=== PATIENT | female | born 1990 | race American Indian/Alaskan Native ===

== ENCOUNTER 2017-04-24 15:54 | Emergency (ER) | payer OTHER ==
[2017-04-24 16:16] VITALS: BP 142/84
--- NOTE | 2017-04-24 16:46 | Emergency Department Report ---
Entered by LOLA HERNANDEZ, acting as scribe for KARLI MONTAGUE PA. Chief Complaint: Upper Respiratory Infection Stated Complaint: CHEST PAIN/COUGHING BLOOD Time Seen by Provider: 04/24/17 16:11 - HPI History of Present Illness: Patient c/o an upper respiratory infection with associated sharp, 5/10 chest pain with coughing for 4 days. Notes taking OTC cold medication with some relief. Reports nausea/fever/cough with clear-yellow sputum/congestion/rhinorrhea/sore throat. Patient states she coughed up thick sputum with small amounts of blood this morning. She denies fevers/chills/vomiting/abdominal pain/shortness of breath/dizziness - ROS Review of Systems: All systems are negative unless stated in the HPI above. - Exam Vital Signs: Vital Signs 04/24/17 16:01 Temperature 98.8 F Pulse Rate 114 H Respiratory 20 Rate Blood Pressure 142/84 O2 Sat by Pulse 98 Oximetry Physical Exam: GENERAL: Patient is alert and oriented x 3. No apparent distress, normal gait, atraumatic. LUNGS: Symmetrical with respiration. No wheezing, rales or crackles, CTAB. HEART: Tachycardic. Regular rhythm with normal S1/S2 present. No murmurs, rubs , or gallops. MSE screening note: Focused history and physical exam performed. Due to findings the following was ordered: see below ED Medical Decision Making - EKG Data EKG shows normal: sinus rhythm Rate: tachycardia - Medical Decision Making Patient screened by provider in triage area. Labs and chest X-ray will be ordered and sent in for patient. Patient sent to be seen by another provider in fast track. ED Disposition for MSE Condition: Stable This documentation as recorded by the scribe,LOLA HERNANDEZ,accurately reflects the service I personally performed and the decisions made by EDDI rogers OYINLOLA A, PA.
[2017-04-24 17:06] LABS: Bilirubin,Urine NEG (Negative); Blood,Urine NEG (Negative); Ketones,Urine NEG (Negative); Leukocyte Esterase,Urine NEG (Negative); Mucus,Urine FEW /HPF; Nitrite,Urine NEG (Negative); Protein,Urine <15 mg/dL mg/dL (Negative)
[2017-04-24] MEDS ORDERED: NACL ONE (19:32)
--- NOTE | 2017-04-24 19:47 | Emergency Department Report ---
- General Chief Complaint: Upper Respiratory Infection Stated Complaint: CHEST PAIN/COUGHING BLOOD Time Seen by Provider: 04/24/17 19:09 Source: patient Mode of arrival: Ambulatory Limitations: No Limitations - History of Present Illness Initial Comments: This is a 27-year-old female nontoxic or ill in appearance that presents to ED c /o productive cough with yellow colored sputum, congestion, rhinorrhea, sore throat, chest pain when coughing, x4 days. Patient stated this morning she seen a small amount of blood in sputum. Patient denies any recent travels or long car rides. Patient denies SOB, calf pain, dyspnea, headache, fever, chills , blurry vision, stiff neck, n/v, numbness, or tingling. Patient describes chest pain as intermittent during coughing. Patient stated has been taking OTC flu medicine with no relief. Patient denies any allergies. Patient denies taking control. Patient denies any PMH. Last menstrual period 03/14/2017. MD Complaint: cough, sore throat, rhinorrhea, nasal congestion -: Gradual, days(s) Severity: mild Severity scale (0 -10): 5 Quality: aching Consistency: intermittent Improves With: nothing Worsens With: nothing Associated Symptoms: rhinorrhea, nasal congestion, sore throat, cough. denies: fever, chills, myalgias, diaphoresis, headache, stiff neck, chest pain, shortness of breath, abdominal pain, nausea, vomiting, diarrhea, dysuria, rash, confusion, right sweats, weight loss, epistaxis, hoarseness, ear pain Treatments Prior to Arrival: other (OTC "flu medicine") - Related Data Previous Rx's Medication Instructions Recorded Last Taken Type Azithromycin [Zithromax Z-ARGENIS] 250 mg PO DAILY #6 tablet 04/24/17 Unknown Rx Allergies Allergy/AdvReac Type Severity Reaction Status Date / Time No Known Allergies Allergy Unverified 04/24/17 16:15 ED Review of Systems ROS: Stated complaint: CHEST PAIN/COUGHING BLOOD Other details as noted in HPI Constitutional: denies: chills, fever Eyes: denies: eye pain, eye discharge, vision change ENT: denies: ear pain, throat pain Respiratory: denies: cough, shortness of breath, wheezing Cardiovascular: denies: chest pain, palpitations Endocrine: no symptoms reported Gastrointestinal: denies: abdominal pain, nausea, diarrhea Genitourinary: denies: urgency, dysuria, discharge Musculoskeletal: denies: back pain, joint swelling, arthralgia Skin: denies: rash, lesions Neurological: denies: headache, weakness, paresthesias Psychiatric: denies: anxiety, depression Hematological/Lymphatic: denies: easy bleeding, easy bruising ED Past Medical Hx - Past Medical History Previous Medical History?: No - Surgical History Past Surgical History?: No - Social History Smoking Status: Never Smoker Substance Use Type: None - Medications Home Medications: Home Medications Medication Instructions Recorded Confirmed Last Taken Type Azithromycin [Zithromax Z-ARGENIS] 250 mg PO DAILY #6 tablet 04/24/17 Unknown Rx ED Physical Exam - General Limitations: No Limitations General appearance: alert, in no apparent distress - Head Head exam: Present: atraumatic, normocephalic, normal inspection - Eye Eye exam: Present: normal appearance, PERRL, EOMI. Absent: scleral icterus, conjunctival injection, nystagmus, periorbital swelling, periorbital tenderness Pupils: Present: normal accommodation - ENT ENT exam: Present: normal exam, normal orophraynx, mucous membranes moist, TM's normal bilaterally, normal external ear exam - Neck Neck exam: Present: normal inspection, full ROM. Absent: tenderness, meningismus, lymphadenopathy, thyromegaly - Respiratory Respiratory exam: Present: normal lung sounds bilaterally. Absent: respiratory distress, wheezes, rales, rhonchi, stridor, chest wall tenderness, accessory muscle use, decreased breath sounds, prolonged expiratory - Cardiovascular Cardiovascular Exam: Present: normal rhythm, tachycardia, normal heart sounds. Absent: bradycardia, irregular rhythm, systolic murmur, diastolic murmur, rubs, gallop - GI/Abdominal GI/Abdominal exam: Present: soft, normal bowel sounds. Absent: distended, tenderness, guarding, rebound, rigid, diminished bowel sounds - Rectal Rectal exam: Present: deferred - Extremities Exam Extremities exam: Present: normal inspection, full ROM, normal capillary refill. Absent: tenderness, pedal edema, joint swelling, calf tenderness, other (Holmans test) - Back Exam Back exam: Present: normal inspection, full ROM. Absent: tenderness, CVA tenderness (R), CVA tenderness (L), muscle spasm, paraspinal tenderness, vertebral tenderness, rash noted - Neurological Exam Neurological exam: Present: alert, oriented X3, CN II-XII intact, normal gait, reflexes normal - Psychiatric Psychiatric exam: Present: normal affect, normal mood - Skin Skin exam: Present: warm, dry, intact, normal color. Absent: rash ED Course Vital Signs 04/24/17 16:01 Temperature 98.8 F Pulse Rate 114 H Respiratory 20 Rate Blood Pressure 142/84 O2 Sat by Pulse 98 Oximetry - Reevaluation(s) Reevaluation #1: 04/24/17 19:51 Patient is able to speak in full sentences with no signs of distress noted. ED Medical Decision Making - Lab Data Result diagrams: 04/24/17 19:37 04/24/17 19:37 - Medical Decision Making Ed course: This is a 27-year-old female that presents with upper respiratory infection Patient was examined by myself. CTA has been obtained with negative findings. Dictated by Dr. Lloyd. Impression no CT evidence of acute coronary embolism. D-dimer less than 135. Negative Tenderness. Due to patient having recent production off, congestion, rhinorrhea, and sore throat patient was treated with Z-Argenis for upper respiratory infection. Patient was instructed to follow-up with her primary care doctor in 24 hours or symptoms such as shortness of breath, chest pain, fever, chills, nausea or vomiting return to emergency room as was possible. at time time of discharge, the patient does not seem toxic or ill in appearance. No acute signs of distress noted. Patient agrees to discharge treatment plan of care. No further questions noted by the patient. Critical care attestation.: If time is entered above; I have spent that time in minutes in the direct care of this critically ill patient, excluding procedure time. ED Disposition Clinical Impression: Upper respiratory infection Qualifiers: URI type: unspecified URI Qualified Code(s): J06.9 - Acute upper respiratory infection, unspecified Disposition: - TO HOME OR SELFCARE Is pt being admited?: No Does the pt Need Aspirin: No Condition: Stable Instructions: Upper Respiratory Infection (ED), Azithromycin (By mouth) Additional Instructions: follow-up with your primary care doctor in 24 hours or symptoms such as shortness of breath, chest pain, fever, chills, nausea or vomiting return to emergency room as was possible. Take full course of antibiotics as prescribed. Prescriptions: Azithromycin [Zithromax Z-ARGENIS] 250 mg PO DAILY #6 tablet Referrals: [facility] [Outside] - 3-5 Days [facility] [Outside] - 3-5 Days PRIMARY CAREMD [Primary Care Provider] - 24 Hours NEFTALI GUERIN JR, MD [Staff Physician] - 24 Hours Forms: Work/School Release Form(ED)
[2017-04-24 19:50] LABS: Basophils % (Auto) 0.7 % (0.0-1.8); Eosinophils % (Auto) 4.9 % (0.0-4.3); Hematocrit 39.3 % (30.3-42.9); Hemoglobin 12.6 gm/dl (10.1-14.3); Mean Corpuscular HGB Conc 32 % (30-34); Mean Corpuscular Volume 80 fl (79-97); Platelet Count 335 K/mm3 (140-440); Red Blood Count 4.93 M/mm3 (3.65-5.03); Red Cell Distribution Width 15.2 % (13.2-15.2); White Blood Count 6.8 K/mm3 (4.5-11.0)
[2017-04-24 19:57] LABS: Mean Corpuscular Hemoglobin 26 pg (28-32)
[2017-04-24 20:14] LABS: Creatine Kinase MB 1.1 ng/mL (0.0-4.0)
[2017-04-24 20:15] LABS: Anion Gap 16 mmol/L; BUN/Creatinine Ratio 16.66; Blood Urea Nitrogen 10 mg/dL (7-17); Calcium 9.1 mg/dL (8.4-10.2); Carbon Dioxide 27 mmol/L (22-30); Chloride 97.2 mmol/L (98-107); Creatine Kinase 102 units/L (30-135); Glucose 84 mg/dL (65-100); Sodium 136 mmol/L (137-145)
--- NOTE | 2017-04-24 21:16 | Cat Scan Report ---
FINAL REPORT EXAM: CT ANGIO CHEST HISTORY: chest pain TECHNIQUE: CT chest CT angiogram with reconstructions PRIORS: None. FINDINGS: There is no evidence of filling defect within the central pulmonary vasculature to suggest the presence of acute pulmonary embolus. No evidence of mediastinal pathologic lymph node enlargement Heart and great vessels are unremarkable. The aorta is normal in caliber. No focal pulmonary infiltrate identified. No pleural fluid collection seen. No acute pulmonary abnormality noted. Visualized portion of the upper abdomen demonstrates no acute change. IMPRESSION: Negative. No CT evidence of acute pulmonary embolus
== END 2017-04-24 22:38 | disposition home or self-care (01) ==
LOC: ED 15:54
DX: J06.9 Acute upper respiratory infection, unspecified (principal)
CPT/HCPCS: 36415; 71275; 80048; 81001; 82550; 82553; 84484; 84703; 85025; 85379; 93005; 93010; 99284; Q9967

== ENCOUNTER 2020-12-27 00:34 | Emergency (ER) | payer SELFPAY | END 2020-12-27 01:00 | disposition left against medical advice (07) | LOC: ED 00:34 | DX: R06.02 Shortness of breath (principal); Z53.21 Procedure and treatment not carried out due to patient leaving prior to being seen by health care provider ==